=== PATIENT | female | born 1970 | race Caucasian/White ===

== ENCOUNTER 2022-07-08 12:52 | Inpatient (IN) | payer OTHER, SELFPAY ==
--- NOTE | 2022-07-08 | ECG_ITS ---
Test Reason : medical clearence Blood Pressure : / mmHG Vent. Rate : 067 BPM Atrial Rate : 067 BPM P-R Int : 146 ms QRS Dur : 082 ms QT Int : 384 ms P-R-T Axes : 057 015 037 degrees QTc Int : 405 ms Normal sinus rhythm Nonspecific T wave abnormality Abnormal ECG No previous ECGs available Referred By: Trey Sparks Electronically Signed By:Fernando Ann
--- NOTE | ~2022-07-08 | XR_ITS ---
EXAMINATION: XR ABDOMEN KUB CLINICAL INDICATION: Obstruction. COMPARISON: None available. TECHNIQUE: AP view of the abdomen. FINDINGS: Nonobstructive bowel gas pattern. No significant stool content. No acute osseous abnormalities. Small right-sided pelvic phleboliths. XR/XR KUB IMPRESSION: Nonobstructive bowel gas pattern.
[2022-07-08 12:59] VITALS: BP 129/87; BP 137/100; PULSE 63; PULSE 88; RESP 18; TEMP 36.8; O2SAT 98; BMI 21.2
--- NOTE | 2022-07-08 13:12 | ED_ITS ---
HPI - General Adult General Chief complaint: Psychiatric Symptoms Stated complaint: SEC 12 BY [facility]N FOR SI Time Seen by Provider: 07/08/22 13:11 Source: patient and EMS Mode of arrival: EMS Limitations: no limitations History of Present Illness HPI narrative: Patient is a 51 year old assigned female at with no reported medical history presenting to the emergency department today on a section 12 for SI. Patient states that she has a plan to kill herself by cutting her wrists and there are voices telling her to do this to herself. Patient denies any dizziness, lightheadedness, abdominal pain, nausea, vomiting, fever, chills, blurry vision, double vision, loss of vision, chest pain, difficulty breathing, shortness of breath, back pain, night sweats, pain with urination, increased urinary frequency, increased urinary urgency, blood in her urine or stool, syncope or a near syncopal episode, recent trauma or falls, bowel incontinence, bladder incontinence, bowel retention, bladder retention, or any other complaints at this time. Relieving factors: none Exacerbating factors: none Associated symptoms: denies other symptoms Treatments prior to arrival: none Related Data Home Medications Medication Instructions Recorded Confirmed gabapentin 100 mg tablet 100 mg PO BID 07/08/22 07/08/22 levothyroxine 112 mcg tablet 112 mcg PO DAILY 07/08/22 07/08/22 Review of Systems Constitutional: Constitutional: Reports no additional constitutional c omplaints, Denies chills, Denies fever(s) and Denies night sweats Eyes: Eyes: Reports no additional eye complaints, Denies blurry vision, Denies change in vision, Denies diplopia, Denies eye discharge, Denies loss of vision and Denies eye pain ENT: Denies dizziness Cardiovascular: Cardiovascular: Reports no additional cardiovascular complaints, Denies chest pain, Denies lightheadedness, Denies Loss of Consciousness and Denies dyspnea Respiratory: Respiratory: Reports no additional respiratory complaints and Denies dyspnea Gastrointestinal: Gastrointestinal: Reports no additional gastrointestinal complaints, Denies abdominal pain, Denies melena, Denies hematochezia, Denies change in bowel habits and Denies change in stool character Genitourinary: Genitourinary: Denies hematuria, Denies urinary frequency, Denies dysuria, Denies urinary incontinence, Denies urinary hesitancy and Denies urinary urgency Musculoskeletal: Musculoskeletal: Reports no additional musculoskeletal complaints, Denies numbness and Denies tingling Neurologic: Denies dizziness, Denies loss of vision, Denies numbness and Denies tingling Psychiatric: Psychiatric: Reports no additional psychiatric complaints, Denies homicidal ideation and Reports suicidal ideation Endocrine: Endocrine: Reports no additional endocrine complaints Hematologic/Lymphatic: Hematologic/Lymphatic: Reports no additional hematologic/lymphatic complaints Allergic/Immunologic: Allergic/Immunologic: Reports no additional allergic/immunologic complaints PMFSH Past Medical History Attestation statement: The following information was validated with the patient. Source: old records reviewed and nursing notes reviewed Social History Social History Advance Directives: No Advance Directives Information Provided: Yes Physical Exam ED Vital Signs: Vital Signs - 24 hr 07/08/22 12:59 Temperature 98.3 F Pulse Rate 63 Respiratory Rate 18 Blood Pressure 129/87 Pulse Oximetry 98 Oxygen Delivery Method Room Air BMI result Body Mass Index 21.2 Const General: cooperative, no acute distress, alert and awake Nutritional Appearance: well nourished Orientation/consciousness: patient oriented x3 Limitations: no limitations HENMT Head: Yes normal to inspection and Yes atraumatic Ears: hearing grossly normal bilaterally and external ears normal General nose exam: Normal external nose present, no nasal discharge noted and no epistaxis Face and sinus: Yes normal facial exam, No abrasion and No laceration Mouth: Normal oral and palatal mucosa present, no drooling and no muffled voice Eyes General: appearance normal, both eyes and all related structures Periorbital: periorbital findings normal Eyelids: Yes eyelids normal Conjunctivae: conjunctivae normal Pupils: Equal, round and reactive pupils present EOM: EOMs intact bilaterally Neck Neck: Yes normal visual inspection, Yes full ROM and Yes no lymphadenopathy Chest Chest palpation & inspection: normal inspection of the chest Resp Effort & Inspection: normal respiratory effort and able to speak in complete sentences Auscultation: clear to auscultation bilaterally Cardio Rate: regular rate Rhythm: regular rhythm GI Inspection: Yes normal to inspection Palpation (GI): Soft to palpation, not firm, nontender and no guarding Neuro General: patient oriented x3 and moves all extremities Cranial nerves: Yes Equal, round and reactive pupils present Cognition (Neuro): normal cognition Motor exam (neuro): 5/5 motor strength present throughout Sensory Exam: Normal double simultaneous stimulation for sensation Coordination: [id number] test normal Extrem General: Yes normal to inspection, Yes full ROM and Yes capillary refill normal Psych Appearance: grossly normal Mental Status: mental status grossly normal Affect: Blunted affect present Attitude: cooperative Thought content: Suicidality present Insight: Limited insight present (Psych) Judgement: Limited judgement present (Psych) Medical Decision Making Medical Decision Making [facility] Narrative: Patient is a 51 year old assigned female at with no reported medical history presenting to the emergency department today with suicidal ideation. Patient's physical exam showed a blunted individual but was otherwise unrem arkable. Patient's blood work was unremarkable. I explained my physical exam findings as well as all test results to the patient. I answered all questions asked by the patient. Patient is still pending evaluation by CARE team. Differential Diagnosis Differential Diagnoses: The differential diagnosis associated with the presentation includes suicidal ideation Lab Data [facility] Lab Attestation statement: I reviewed the patient's lab results. 07/08/22 16:16 07/08/22 16:16 Labs: Lab Results 07/08/22 07/08/22 07/08/22 Range/Units 13:13 16:16 16:16 WBC 7.6 (4.8-10.8) X10*3/uL RBC 3.66 L (4.20-5.50) X10*6/uL Hgb 12.8 (12.0-16.0) g/dl Hct 36.9 L (37.0-47.0) % MCV 100.8 H (80.0-98.0) fL MCH 35.0 H (27.0-33.0) pg MCHC 34.7 (31.0-35.0) g/dl RDW 12.7 (11.0-16.0) % Plt Count 402 H (160-400) X10*3/uL MPV 8.8 L (9.4-12.3) fL Immature Gran % (Auto) 0.3 (0.0-0.4) % Neut % (Auto) 59.0 (45-73) % Lymph % (Auto) 32.5 (20-40) % [place] % (Auto) 6.6 (2-11) % Eos % (Auto) 0.9 (0-4) % Baso % (Auto) 0.7 (0-2) % Lymph # (Auto) 2.5 (1.2-4.9) X10*3/uL [place] # (Auto) 0.5 (0.1-1.2) X10*3/uL Eos # (Auto) 0.1 (0.0-0.4) X10*3/uL Baso # (Auto) 0.1 (0.0-0.2) X10*3/uL Abs Immat Gran (auto) 0.02 (0.00-0.03) X10*3/uL Absolute Neuts (auto) 4.5 (2.0-8.3) x10*3/uL Absolute Nucleated RBC 0.000 (0.0-0.012) X10*3/uL Nucleated RBC % (auto) 0.0 (0.0-0.2) /100WBC Sodium 140 (135-145) mmol/L Potassium 3.8 (3.3-5.1) mmol/L Chloride 103 (96-108) mmol/L Carbon Dioxide 30 H (22-29) mmol/L Anion Gap 11 L (12-20) BUN 11 (9-16) mg/dL Creatinine 1.13 (0.5-1.4) mg/dL Estim Creat Clear Calc 47.6 Estimated GFR 50 Random Glucose 145 H (60-115) mg/dL Calcium 9.7 (8.4-10.2) mg/dL Total Bilirubin 0.5 (0.0-1.0) mg/dL AST 27 (5-31) U/L ALT 17 (0-31) U/L Alkaline Phosphatase 69 (39-117) U/L Total Protein 7.9 (6.5-8.0) g/dL Albumin 4.8 (3.5-5.0) g/dL COVID-19 (LESLI) Negative (Negative) COVID-19 Clin Com See Note Discharge Plan Discharge Clinical Impression: Suicidal ideation Patient Disposition: Still a Patient Prescriptions: No Action levothyroxine 112 mcg Tablet 112 mcg PO DAILY gabapentin 100 mg Tablet 100 mg PO BID Interventions: [place]-Suicide Risk Severity Scale Last Done: 07/08/22 13:02
--- NOTE | 2022-07-08 13:40 | MHC.CARE ---
Pt is an inpatient bedsearch from the replaced by [facility] ([facility]).
[2022-07-08 13:53] LABS: COVID-19 Test Negative (Negative); IDNOW Serial# 55D5AD1C
[2022-07-08 16:26] LABS: MANUAL DIFF FLAG NO
[2022-07-08 16:30] LABS: Basophils Absolute Auto 0.1 X10*3/uL (0.0-0.2); Basophils Percent Auto 0.7 % (0-2); Eosinophils Absolute Auto 0.1 X10*3/uL (0.0-0.4); Eosinophils Percent Auto 0.9 % (0-4); Hematocrit 36.9 % (37.0-47.0); Hemoglobin 12.8 g/dl (12.0-16.0); Imm Gran Abs Auto 0.02 X10*3/uL (0.00-0.03); Imm Gran Pct Auto 0.3 % (0.0-0.4); Lymphocytes Absolute Auto 2.5 X10*3/uL (1.2-4.9); Lymphocytes Percent Auto 32.5 % (20-40); Mean Corpuscular HGB Conc 34.7 g/dl (31.0-35.0); Mean Corpuscular Volume 100.8 fL (80.0-98.0); Mean Platelet Volume 8.8 fL (9.4-12.3); Monocytes Absolute Auto 0.5 X10*3/uL (0.1-1.2); Monocytes Percent Auto 6.6 % (2-11); Neutrophils Absolute Auto 4.5 x10*3/uL (2.0-8.3); Platelet Count 402 X10*3/uL (160-400); Red Blood Count 3.66 X10*6/uL (4.20-5.50); Red Cell Distribution Width 12.7 % (11.0-16.0); White Blood Count 7.6 X10*3/uL (4.8-10.8)
[2022-07-08 16:46] LABS: Alanine Aminotransferase 17 U/L (0-31); Albumin Level 4.8 g/dL (3.5-5.0); Alkaline Phosphatase 69 U/L (39-117); Anion Gap 11 (12-20); Aspartate Amino Transferase 27 U/L (5-31); Bilirubin Total 0.5 mg/dL (0.0-1.0); Blood Urea Nitrogen 11 mg/dL (9-16); Calcium 9.7 mg/dL (8.4-10.2); Carbon Dioxide 30 mmol/L (22-29); Chloride 103 mmol/L (96-108); Creatinine Clr Calc Pharmacy 47.6; Estimated Glomerular Filt Rate 50; Glucose Random 145 mg/dL (60-115); Potassium 3.8 mmol/L (3.3-5.1); Sodium 140 mmol/L (135-145); Total Protein 7.9 g/dL (6.5-8.0)
[2022-07-08 19:00] LABS: Amphetamine Screen Urine Not Detected (Not Detect); Barbiturates, Urine Not Detected (Not Detect); Benzodiazepines Screen Urine Not Detected (Not Detect); Cannabinoid Screen Urine Not Detected (Not Detect); Cocaine Screen Urine Not Detected (Not Detect); Fentanyl, urine Not Detected (Not Detect); Opiate Screen Urine Not Detected (Not Detect); Phencyclidine Screen Urine Not Detected (Not Detect)
[2022-07-08 23:20] VITALS: BP 116/82; PULSE 71; RESP 18; TEMP 36.6; O2SAT 98
[2022-07-08 23:25] VITALS: BMI 20.9
[2022-07-09] MEDS: traZODone HCL 50 MG TABLET PO ×2 (00:26→22:29)
[2022-07-09] MEDS: hydrOXYzine HCL 25 MG TABLET PO (00:26)
[2022-07-09] MEDS: Acetaminophen 325 MG TABLET 650 MG PO ×3 (00:28→22:29)
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
[2022-07-09] MEDS: Levothyroxine Sodium 112 MCG TABLET PO (06:27)
[2022-07-09] MEDS: Gabapentin 100 MG CAPSULE PO ×2 (09:08→22:29)
[2022-07-09 09:14] VITALS: BP 126/80; PULSE 80; TEMP 36.3; O2SAT 97
[2022-07-09 09:42] LABS: Alanine Aminotransferase 18 U/L (0-31); Albumin Level 4.7 g/dL (3.5-5.0); Alkaline Phosphatase 73 U/L (39-117); Aspartate Amino Transferase 25 U/L (5-31); Bilirubin Total 0.6 mg/dL (0.0-1.0); Blood Urea Nitrogen 10 mg/dL (9-16); Calcium 9.6 mg/dL (8.4-10.2); Cholesterol 275 mg/dL; Creatinine Clr Calc Pharmacy 50.7; Estimated Glomerular Filt Rate 54; Glucose Fasting 88 mg/dL (60-99); HDL Cholesterol 58 mg/dL; LDL Cholesterol Calculated 200 mg/dl; Total Protein 7.8 g/dL (6.5-8.0); Triglycerides 89 mg/dL
[2022-07-09 09:58] LABS: Anion Gap 13 (12-20); Carbon Dioxide 29 mmol/L (22-29); Chloride 105 mmol/L (96-108); Potassium 4.7 mmol/L (3.3-5.1); Sodium 142 mmol/L (135-145)
[2022-07-09 10:08] LABS: Folate 15.7 ng/mL (> or = 4.0); Thyroid Stimulating Hormone 46.37 uIU/mL (0.32-4.0); Vitamin B12 835 pg/mL (200-900)
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
[2022-07-09] MEDS: Venlafaxine HCl ER 37.5 MG CAP.ER.24H PO (11:36)
[2022-07-09] MEDS: LORazepam 0.5 MG TABLET PO ×2 (11:36→22:29)
[2022-07-09] MEDS: Lidocaine 4 % Patch ADH..PATCH 1 PATCH TRANSDERMA (11:40)
[2022-07-09] MEDS: Milk of Magnesia 30 ML ORAL.SUSP PO (12:17)
--- NOTE | 2022-07-09 14:18 | PC.NURSE ---
Earlier in the shift, pt was complaining of constipation. Pt received milk of magensia at 1217. At 1330, pt reported she didn't feel well and began vomiting and was experiencing diarrhea. Pt continued to vomit for 20 minutes, Melissa aware. Melissa placed order for zofran but pt refused and did not want to take any additional medications. Pt required assistance from toilet to her bed because she complained of her legs feeling numb from sitting for so long. RN assisted pt back to her bed. Melissa recommended orthostatic vitals however pt stated I really don't want to move right now and refused to sit or stand. RN assessed vitals while supine, 98/63, HR 82, O2 98% T: 97. Melissa aware.
[2022-07-09 15:46] LABS: Basophils Absolute Auto 0.1 X10*3/uL (0.0-0.2); Basophils Percent Auto 0.8 % (0-2); Eosinophils Absolute Auto 0.1 X10*3/uL (0.0-0.4); Eosinophils Percent Auto 0.7 % (0-4); Hematocrit 38.7 % (37.0-47.0); Imm Gran Abs Auto 0.05 X10*3/uL (0.00-0.03); Imm Gran Pct Auto 0.4 % (0.0-0.4); Lymphocytes Absolute Auto 2.4 X10*3/uL (1.2-4.9); Lymphocytes Percent Auto 17.7 % (20-40); MANUAL DIFF FLAG NO; Mean Corpuscular HGB Conc 33.6 g/dl (31.0-35.0); Mean Corpuscular Hemoglobin 34.7 pg (27.0-33.0); Mean Corpuscular Volume 103.2 fL (80.0-98.0); Monocytes Absolute Auto 0.7 X10*3/uL (0.1-1.2); Monocytes Percent Auto 5.1 % (2-11); Neutrophils Percent Auto 75.3 % (45-73); Platelet Count 393 X10*3/uL (160-400); Red Blood Count 3.75 X10*6/uL (4.20-5.50); White Blood Count 13.3 X10*3/uL (4.8-10.8)
[2022-07-09 16:12] LABS: Alanine Aminotransferase 17 U/L (0-31); Albumin Level 4.8 g/dL (3.5-5.0); Alkaline Phosphatase 74 U/L (39-117); Anion Gap 16 (12-20); Aspartate Amino Transferase 25 U/L (5-31); Bilirubin Total 0.4 mg/dL (0.0-1.0); Blood Urea Nitrogen 13 mg/dL (9-16); Calcium 10.3 mg/dL (8.4-10.2); Carbon Dioxide 30 mmol/L (22-29); Chloride 100 mmol/L (96-108); Creatinine Clr Calc Pharmacy 47.2; Estimated Glomerular Filt Rate 50; Glucose Random 114 mg/dL (60-115); Lipase 18 U/L (8-78); Potassium 4.6 mmol/L (3.3-5.1); Sodium 141 mmol/L (135-145); Total Protein 7.9 g/dL (6.5-8.0)
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
[2022-07-09 22:26] VITALS: BP 131/76; PULSE 74; RESP 18; TEMP 36.1; O2SAT 98
[2022-07-10] MEDS: Levothyroxine Sodium 112 MCG TABLET PO (07:09)
[2022-07-10 09:15] VITALS: BP 113/74; PULSE 98; RESP 20; TEMP 36.7; O2SAT 97
[2022-07-10] MEDS: Lidocaine 4 % Patch ADH..PATCH 1 PATCH TRANSDERMA ×2 (09:32→16:31)
[2022-07-10] MEDS: Acetaminophen 325 MG TABLET 650 MG PO ×3 (09:33→21:34)
[2022-07-10] MEDS: LORazepam 0.5 MG TABLET PO ×2 (09:33→21:34)
[2022-07-10] MEDS: Venlafaxine HCl ER 37.5 MG CAP.ER.24H PO (09:33)
[2022-07-10] MEDS: Gabapentin 100 MG CAPSULE PO ×2 (09:34→21:34)
--- NOTE | 2022-07-10 17:07 | HO.PSYCHPN ---
Subjective Subjective Date of Service: 07/10/22 Reason For Visit: si Subjective Notes: Conditional Voluntary Medical Problems Affecting Mental Status: No Interim History: met with patient. Discussed with Nursing. Overall feeling significantly better than yesterday physically i.e. able to tolerate food today and no nausea or vomiting. Slept well. Reports her mood is definitely better, but still feels depressed and hopeless at times. Did brighten when talking about family. Hopeful that medications will help with mood. Feeling well care for and supported. Medication Compliance: Yes Side effects from medications: No Attending Groups: Yes Review of Systems Acute medical concerns: No Appreciated hospitalist consult and recommendations. Review of Systems Review of Systems Yes all other systems are reviewed and are negative Mental Status Exam Mental Status Exam Narrative: Pleasant. Engaged. Appropriately presented. Organized. Depressed. No SI. No HI. No agitation. No psychosis. Insight and judgment okay Diagnostics Vital Signs (24Hr): Vital Signs - 24 hr 07/09/22 22:26 07/10/22 09:15 Temperature 97.0 F 98.0 F Pulse Rate 74 98 Respiratory Rate 18 20 Blood Pressure 131/76 113/74 Pulse Oximetry 98 97 Oxygen Delivery Method Room Air Room Air BMI result Body Mass Index 20.9 Labs 07/09/22 15:38 07/09/22 15:38 Labs: Laboratory Results - last 48 hr 07/08/22 07/09/22 07/09/22 18:44 08:53 15:38 WBC RBC Hgb Hct MCV MCH MCHC RDW Plt Count MPV Immature Gran % (Auto) Neut % (Auto) Lymph % (Auto) [place] % (Auto) Eos % (Auto) Baso % (Auto) Lymph # (Auto) [place] # (Auto) Eos # (Auto) Baso # (Auto) Abs Immat Gran (auto) Absolute Neuts (auto) Absolute Nucleated RBC Nucleated RBC % (auto) Sodium 142 141 Potassium 4.7 D 4.6 Chloride 105 100 Carbon Dioxide 29 30 H Anion Gap 13 16 BUN 10 13 Creatinine 1.06 1.14 Estim Creat Clear Calc 50.7 47.2 Estimated GFR 54 50 Random Glucose 114 Fasting Glucose 88 Calcium 9.6 10.3 H D Total Bilirubin 0.6 0.4 AST 25 25 ALT 18 17 Alkaline Phosphatase 73 74 Total Protein 7.8 7.9 Albumin 4.7 4.8 Triglycerides 89 Cholesterol 275 LDL Cholesterol, Calc 200 HDL Cholesterol 58 Lipase 18 Vitamin B12 835 Folate 15.7 TSH 46.37 H Urine Opiates Screen Not Detected Urine Fentanyl Screen Not Detected Ur Barbiturates Screen Not Detected Ur Phencyclidine Scrn Not Detected Ur Amphetamines Screen Not Detected U Benzodiazepines Scrn Not Detected Urine Cocaine Screen Not Detected U Marijuana (THC) Screen Not Detected 07/09/22 15:38 WBC 13.3 H RBC 3.75 L Hgb 13.0 Hct 38.7 MCV 103.2 H MCH 34.7 H MCHC 33.6 RDW 13.0 Plt Count 393 MPV 9.0 L Immature Gran % (Auto) 0.4 Neut % (Auto) 75.3 H Lymph % (Auto) 17.7 L [place] % (Auto) 5.1 Eos % (Auto) 0.7 Baso % (Auto) 0.8 Lymph # (Auto) 2.4 [place] # (Auto) 0.7 Eos # (Auto) 0.1 Baso # (Auto) 0.1 Abs Immat Gran (auto) 0.05 H Absolute Neuts (auto) 10.0 H Absolute Nucleated RBC 0.000 Nucleated RBC % (auto) 0.0 Sodium Potassium Chloride Carbon Dioxide Anion Gap BUN Creatinine Estim Creat Clear Calc Estimated GFR Random Glucose Fasting Glucose Calcium Total Bilirubin AST ALT Alkaline Phosphatase Total Protein Albumin Triglycerides Cholesterol LDL Cholesterol, Calc HDL Cholesterol Lipase Vitamin B12 Folate TSH Urine Opiates Screen Urine Fentanyl Screen Ur Barbiturates Screen Ur Phencyclidine Scrn Ur Amphetamines Screen U Benzodiazepines Scrn Urine Cocaine Screen U Marijuana (THC) Screen Imaging Radiology Impressions: ITS Impressions KUB X-Ray 07/09/22 16:50 IMPRESSION: Nonobstructive bowel gas pattern. Medications Medications Current Medications Acetaminophen (Acetaminophen 325 Mg Tablet) 650 mg PO TID [facility] Last Admin: 07/10/22 14:18 Dose: 650 mg Al Hydroxide/Mg Hydroxide (Magnesium Hydrox/Alum Hydrox 30 Ml Oral.Susp) 30 ml PO Q6H PRN PRN Reason: Heartburn/Nausea Gabapentin (Gabapentin 100 Mg Capsule) 100 mg PO BID [facility] Last Admin: 07/10/22 09:34 Dose: 100 mg Hydroxyzine HCl (Hydroxyzine Hcl 25 Mg Tablet) 25 mg PO Q6H PRN PRN Reason: Anxiety Last Admin: 07/09/22 00:26 Dose: 25 mg Levothyroxine Sodium (Levothyroxine Sodium 112 Mcg Tablet) 112 mcg PO DAILY@0630 [facility] Last Admin: 07/10/22 07:09 Dose: 112 mcg Lidocaine (Lidocaine 4 % Patch Adh..Patch) 1 patch TRANSDERMA DAILY [facility]; Protocol Last Admin: 07/10/22 09:32 Dose: 1 patch Loperamide HCl (Loperamide Hcl 2 Mg Capsule) 2 mg PO Q6H PRN PRN Reason: Loose Stool Lorazepam (Lorazepam 0.5 Mg Tablet) 0.5 mg PO BID [facility] Last Admin: 07/10/22 09:33 Dose: 0.5 mg Magnesium Hydroxide (Milk Of Magnesia 30 Ml Oral.Susp) 30 ml PO DAILY PRN PRN Reason: Constipation Last Admin: 07/09/22 12:17 Dose: 30 ml Ondansetron HCl (Ondansetron Odt 4 Mg Tab.Rapdis) 4 mg TRANSLINGU Q6H PRN PRN Reason: Vomiting Trazodone HCl (Trazodone Hcl 50 Mg Tablet) 50 mg PO BEDTIME PRN PRN Reason: Insomnia Last Admin: 07/09/22 22:29 Dose: 50 mg Venlafaxine HCl (Venlafaxine Hcl Er 37.5 Mg Cap.Er.24h) 37.5 mg PO DAILY [facility] Last Admin: 07/10/22 09:33 Dose: 37.5 mg Allergies Allergies Allergy/AdvReac Type Severity Reaction Status Date / Time Unable to Assess Allergy Verified 07/08/22 22:27 Assessment & Plan Assessment & Plan (1) MDD (major depressive disorder), recurrent severe, without psychosis: Status: Acute Code(s): F33.2 - Major depressive disorder, recurrent severe without psychotic features Assessment and Plan: 07/10: continue current treatment plan. Reason for contiued inpatient stay Substantial Risk for: inability to function Time Spent With Patient Time: Total time managing care of this patient today ____ minutes.
[2022-07-10 21:25] VITALS: BP 116/71; PULSE 79; RESP 18; TEMP 35.9; O2SAT 96
[2022-07-10] MEDS: traZODone HCL 50 MG TABLET PO ×2 (21:34→23:04)
[2022-07-11] MEDS: Levothyroxine Sodium 112 MCG TABLET PO (07:00)
[2022-07-11 08:30] VITALS: BP 84/55; PULSE 92; RESP 18; TEMP 37.1; O2SAT 96
[2022-07-11] MEDS: LORazepam 0.5 MG TABLET PO ×2 (09:12→21:37)
[2022-07-11] MEDS: Gabapentin 100 MG CAPSULE PO ×2 (09:12→21:36)
[2022-07-11] MEDS: Venlafaxine HCl ER 37.5 MG CAP.ER.24H PO (09:13)
[2022-07-11] MEDS: Acetaminophen 325 MG TABLET 650 MG PO ×3 (09:13→21:36)
[2022-07-11] MEDS: Lidocaine 4 % Patch ADH..PATCH 1 PATCH TRANSDERMA (09:16)
[2022-07-11 10:07] VITALS: BP 111/71; PULSE 89; RESP 18; O2SAT 97
[2022-07-11] MEDS: hydrOXYzine HCL 25 MG TABLET PO (14:59)
--- NOTE | 2022-07-11 16:59 | HO.PSYCHPN ---
Subjective Subjective Date of Service: 07/11/22 Reason For Visit: si Interim History: Reports today is not as good as yesterday. Attributes this to having visit from her daughter yesterday which was positive. Also acknowledges overall though things are a little bit better. Reports her sleep has been broken but that extra trazodone has been helpful. We did discuss scheduling a higher dose which she felt positive about. Otherwise slightly less hopeless. Less frequent suicidal thoughts. No plans. Feeling supported. Remains positive regarding medications. We did discuss focusing on self versus other people on the unit, such as her roommate and respecting boundaries. Medication Compliance: Yes Side effects from medications: No Attending Groups: Yes Review of Systems Acute medical concerns: No Review of Systems Review of Systems Yes all other systems are reviewed and are negative Mental Status Exam Mental Status Exam Narrative: Pleasant. Engaged. Appropriately presented. Organized. Depressed. No SI. No HI. No agitation. No psychosis. Insight and judgment okay Diagnostics Vital Signs (24Hr): Vital Signs - 24 hr 07/10/22 21:25 07/11/22 08:30 07/11/22 10:07 Temperature 96.7 F L 98.7 F Pulse Rate 79 92 89 Respiratory Rate 18 18 18 Blood Pressure 116/71 84/55 L 111/71 Pulse Oximetry 96 96 97 Oxygen Delivery Method Room Air Room Air Room Air BMI result Body Mass Index 20.9 Labs 07/09/22 15:38 07/09/22 15:38 Imaging Radiology Impressions: ITS Impressions KUB X-Ray 07/09/22 16:50 IMPRESSION: Nonobstructive bowel gas pattern. Medications Medications Current Medications Acetaminophen (Acetaminophen 325 Mg Tablet) 650 mg PO TID [facility] Last Admin: 07/11/22 14:51 Dose: 650 mg Al Hydroxide/Mg Hydroxide (Magnesium Hydrox/Alum Hydrox 30 Ml Oral.Susp) 30 ml PO Q6H PRN PRN Reason: Heartburn/Nausea Gabapentin (Gabapentin 100 Mg Capsule) 100 mg PO BID [facility] Last Admin: 07/11/22 09:12 Dose: 100 mg Hydroxyzine HCl (Hydroxyzine Hcl 25 Mg Tablet) 25 mg PO Q6H PRN PRN Reason: Anxiety Last Admin: 07/11/22 14:59 Dose: 25 mg Levothyroxine Sodium (Levothyroxine Sodium 112 Mcg Tablet) 112 mcg PO DAILY@0630 [facility] Last Admin: 07/11/22 07:00 Dose: 112 mcg Lidocaine (Lidocaine 4 % Patch Adh..Patch) 1 patch TRANSDERMA DAILY [facility]; Protocol Last Admin: 07/11/22 09:16 Dose: 1 patch Loperamide HCl (Loperamide Hcl 2 Mg Capsule) 2 mg PO Q6H PRN PRN Reason: Loose Stool Lorazepam (Lorazepam 0.5 Mg Tablet) 0.5 mg PO BID [facility] Last Admin: 07/11/22 09:12 Dose: 0.5 mg Magnesium Hydroxide (Milk Of Magnesia 30 Ml Oral.Susp) 30 ml PO DAILY PRN PRN Reason: Constipation Last Admin: 07/09/22 12:17 Dose: 30 ml Ondansetron HCl (Ondansetron Odt 4 Mg Tab.Rapdis) 4 mg TRANSLINGU Q6H PRN PRN Reason: Vomiting Trazodone HCl (Trazodone Hcl 50 Mg Tablet) 50 mg PO BEDTIME PRN PRN Reason: Insomnia Last Admin: 07/10/22 23:04 Dose: 50 mg Venlafaxine HCl (Venlafaxine Hcl Er 37.5 Mg Cap.Er.24h) 37.5 mg PO DAILY [facility] Last Admin: 07/11/22 09:13 Dose: 37.5 mg Allergies Allergies Allergy/AdvReac Type Severity Reaction Status Date / Time Unable to Assess Allergy Verified 07/08/22 22:27 Assessment & Plan Assessment & Plan (1) MDD (major depressive disorder), recurrent severe, without psychosis: Status: Acute Code(s): F33.2 - Major depressive disorder, recurrent severe without psychotic features Assessment and Plan: 07/10: continue current treatment plan 07/11: increased trazodone to 100mg bedtime Reason for contiued inpatient stay Substantial Risk for: harm to self Time Spent With Patient Time: Total time managing care of this patient today ____ minutes.
[2022-07-11 18:45] VITALS: BP 127/72; PULSE 74; RESP 18; TEMP 36.8; O2SAT 98
[2022-07-11] MEDS: traZODone HCL 100 MG TABLET PO (21:39)
[2022-07-12] MEDS: Levothyroxine Sodium 112 MCG TABLET PO (05:41)
[2022-07-12 08:00] VITALS: BP 112/79; PULSE 85; TEMP 36.1; O2SAT 96
[2022-07-12] MEDS: Acetaminophen 325 MG TABLET 650 MG PO ×3 (08:44→22:38)
[2022-07-12] MEDS: Venlafaxine HCl ER 37.5 MG CAP.ER.24H PO (08:44)
[2022-07-12] MEDS: LORazepam 0.5 MG TABLET PO ×2 (08:44→22:38)
[2022-07-12] MEDS: Gabapentin 100 MG CAPSULE PO ×2 (08:44→22:39)
[2022-07-12] MEDS: Lidocaine 4 % Patch ADH..PATCH 1 PATCH TRANSDERMA (08:45)
--- NOTE | 2022-07-12 16:57 | HO.PSYCHPN ---
Subjective Subjective Date of Service: 07/12/22 Reason For Visit: si Interim History: Met with patient; discussed with team; reviewed we can progress notes pt reports overall she's feeling better; depression is much less and SI fully resolved. Pt says anxiety is less. Pharmacy Messenger reviewed ups/downs over the weekend and she agrees to increase Venlafaxine. Pt reports sleeping better. Mental Status Exam Mental Status Exam Narrative: Pleasant. Engaged. Appropriately presented. Organized. Depressed. No SI. No HI. No agitation. No psychosis. Insight and judgment okay Diagnostics Vital Signs (24Hr): Vital Signs - 24 hr 07/11/22 18:45 07/12/22 08:00 Temperature 98.2 F 96.9 F Pulse Rate 74 85 Respiratory Rate 18 Blood Pressure 127/72 112/79 Pulse Oximetry 98 96 Oxygen Delivery Method Room Air Room Air BMI result Body Mass Index 20.9 Labs 07/09/22 15:38 07/09/22 15:38 Imaging Radiology Impressions: ITS Impressions KUB X-Ray 07/09/22 16:50 IMPRESSION: Nonobstructive bowel gas pattern. Medications Medications Current Medications Acetaminophen (Acetaminophen 325 Mg Tablet) 650 mg PO TID [facility] Last Admin: 07/12/22 14:41 Dose: 650 mg Al Hydroxide/Mg Hydroxide (Magnesium Hydrox/Alum Hydrox 30 Ml Oral.Susp) 30 ml PO Q6H PRN PRN Reason: Heartburn/Nausea Gabapentin (Gabapentin 100 Mg Capsule) 100 mg PO BID [facility] Last Admin: 07/12/22 08:44 Dose: 100 mg Hydroxyzine HCl (Hydroxyzine Hcl 25 Mg Tablet) 25 mg PO Q6H PRN PRN Reason: Anxiety Last Admin: 07/11/22 14:59 Dose: 25 mg Levothyroxine Sodium (Levothyroxine Sodium 112 Mcg Tablet) 112 mcg PO DAILY@0630 [facility] Last Admin: 07/12/22 05:41 Dose: 112 mcg Lidocaine (Lidocaine 4 % Patch Adh..Patch) 1 patch TRANSDERMA DAILY [facility]; Protocol Last Admin: 07/12/22 08:45 Dose: 1 patch Loperamide HCl (Loperamide Hcl 2 Mg Capsule) 2 mg PO Q6H PRN PRN Reason: Loose Stool Lorazepam (Lorazepam 0.5 Mg Tablet) 0.5 mg PO BID [facility] Last Admin: 07/12/22 08:44 Dose: 0.5 mg Magnesium Hydroxide (Milk Of Magnesia 30 Ml Oral.Susp) 30 ml PO DAILY PRN PRN Reason: Constipation Last Admin: 07/09/22 12:17 Dose: 30 ml Ondansetron HCl (Ondansetron Odt 4 Mg Tab.Rapdis) 4 mg TRANSLINGU Q6H PRN PRN Reason: Vomiting Trazodone HCl (Trazodone Hcl 100 Mg Tablet) 100 mg PO BEDTIME PRN PRN Reason: Insomnia Last Admin: 07/11/22 21:39 Dose: 100 mg Venlafaxine HCl (Venlafaxine Hcl Er 37.5 Mg Cap.Er.24h) 37.5 mg PO DAILY [facility] Last Admin: 07/12/22 08:44 Dose: 37.5 mg Allergies Allergies Allergy/AdvReac Type Severity Reaction Status Date / Time Unable to Assess Allergy Verified 07/08/22 22:27 Assessment & Plan Assessment & Plan (1) MDD (major depressive disorder), recurrent severe, without psychosis: Status: Acute Code(s): F33.2 - Major depressive disorder, recurrent severe without psychotic features Assessment and Plan: 07/10: continue current treatment plan 07/11: increased trazodone to 100mg bedtime 07/12 increased Venlafaxine ER to 75mg Patient educated on: diagnosis and medication risk/benefits Informed Consent: understands Reason for contiued inpatient stay Substantial Risk for: rapid decompensation Time Spent With Patient Time: Total time managing care of this patient today ____ minutes.
[2022-07-12 20:15] VITALS: BP 109/70; PULSE 74; RESP 18; TEMP 36.9; O2SAT 98
[2022-07-12] MEDS: traZODone HCL 100 MG TABLET PO (22:39)
[2022-07-13] MEDS: Levothyroxine Sodium 112 MCG TABLET PO (06:36)
[2022-07-13] MEDS: Acetaminophen 325 MG TABLET 650 MG PO ×3 (08:53→20:38)
[2022-07-13] MEDS: Gabapentin 100 MG CAPSULE PO ×2 (08:53→20:39)
[2022-07-13] MEDS: LORazepam 0.5 MG TABLET PO ×2 (08:53→20:39)
[2022-07-13] MEDS: Venlafaxine HCl ER 37.5 MG CAP.ER.24H PO ×2 (08:53→09:52)
[2022-07-13 09:12] VITALS: BP 106/67; PULSE 81; RESP 16; TEMP 36.4; O2SAT 97
[2022-07-13] MEDS: Lidocaine 4 % Patch ADH..PATCH 1 PATCH TRANSDERMA (09:53)
--- NOTE | 2022-07-13 11:27 | HO.PSYCHPN ---
Subjective Subjective Date of Service: 07/13/22 Reason For Visit: si Subjective Notes: Conditional Voluntary Interim History: Pt reports feeling less depressed. She denies SI/HI. She does report some anxiety and residual depression. She reports sleeping better. Per nursing, mostly in room, encouraged to attend groups. no physical concerns. Medication Compliance: Yes Side effects from medications: No Attending Groups: Intermittent Review of Systems Review of Systems Postprandial nausea, vomiting, diarrhea times 30 minutes Denies hematemesis or hematochezia Denies abdominal pain No chest pain/pressure, palpitations Denies shortness of breath Yes all other systems are reviewed and are negative Constitutional: Reports no additional constitutional complaints, Denies chills, Reports difficulty sleeping, Reports fatigue, Denies fever(s), Reports lethargy, Denies night sweats, Reports poor appetite and Reports weight loss Eyes: Reports no additional eye complaints, Denies blurry vision, Denies change in vision, Denies diplopia, Denies eye discharge, Denies loss of vision and Denies eye pain Reports system reviewed and no additional complaints, except as documented, Denies dizziness and Reports neck pain Cardiovascular: Reports no additional cardiovascular complaints, Denies chest pain, Denies chest pain with activity, Denies lightheadedness, Denies Loss of Consciousness and Denies dyspnea Respiratory: Reports no additional respiratory complaints, Denies chest congestion, Denies cough and Denies dyspnea Gastrointestinal: Reports no additional gastrointestinal complaints, Denies abdominal pain, Denies melena, Denies hematochezia, Denies change in bowel habits, Denies change in stool character, Denies heartburn and Denies nausea Musculoskeletal: Reports no additional musculoskeletal complaints, Reports back pain, Reports arthralgias, Reports joint swelling, Reports neck pain, Denies numbness and Denies tingling Denies dizziness, Denies loss of vision, Denies numbness and Denies tingling Psychiatric: Reports no additional psychiatric complaints, Denies homicidal ideation and Reports suicidal ideation Endocrine: Reports no additional endocrine complaints and Reports fatigue Hematologic/Lymphatic: Reports no additional hematologic/lymphatic complaints Allergic/Immunologic: Reports no additional allergic/immunologic complaints Mental Status Exam Mental Status Exam Narrative: Appearance: wearing hospital gown, good hygiene, in NAD Behavior: cooperative Psychomotor: no agitation or retardation noted Speech: clear, soft spoken, regular rate, spontaneous TP: linear TC: no signs of psychosis, fearful, depressed, hopeless. Mood: better Affect: brighter SI: none HI: none VH/AH: none Delusions: none Insight/judgment: fair x 2. Memory/cog: alert, oriented x 3. grossly intact to conversational testing but not formally tested. Diagnostics Vital Signs (24Hr): Vital Signs - 24 hr 07/13/22 09:12 07/13/22 20:18 07/14/22 08:29 Temperature 97.6 F 98.3 F 98.8 F Pulse Rate 81 84 79 Respiratory Rate 16 18 16 Blood Pressure 106/67 157/79 H 104/64 Pulse Oximetry 97 98 96 Oxygen Delivery Method Room Air Room Air Room Air BMI result Body Mass Index 20.9 Labs 07/09/22 15:38 07/09/22 15:38 Imaging Radiology Impressions: ITS Impressions KUB X-Ray 07/09/22 16:50 IMPRESSION: Nonobstructive bowel gas pattern. Medications Medications Current Medications Acetaminophen (Acetaminophen 325 Mg Tablet) 650 mg PO TID [facility] Last Admin: 07/14/22 08:41 Dose: 650 mg Al Hydroxide/Mg Hydroxide (Magnesium Hydrox/Alum Hydrox 30 Ml Oral.Susp) 30 ml PO Q6H PRN PRN Reason: Heartburn/Nausea Gabapentin (Gabapentin 100 Mg Capsule) 100 mg PO BID [facility] Last Admin: 07/14/22 08:41 Dose: 100 mg Hydroxyzine HCl (Hydroxyzine Hcl 25 Mg Tablet) 25 mg PO Q6H PRN PRN Reason: Anxiety Last Admin: 07/11/22 14:59 Dose: 25 mg Levothyroxine Sodium (Levothyroxine Sodium 112 Mcg Tablet) 112 mcg PO DAILY@0630 [facility] Last Admin: 07/14/22 06:26 Dose: 112 mcg Lidocaine (Lidocaine 4 % Patch Adh..Patch) 1 patch TRANSDERMA DAILY [facility]; Protocol Last Admin: 07/13/22 09:53 Dose: 1 patch Loperamide HCl (Loperamide Hcl 2 Mg Capsule) 2 mg PO Q6H PRN PRN Reason: Loose Stool Lorazepam (Lorazepam 0.5 Mg Tablet) 0.5 mg PO BID [facility] Last Admin: 07/14/22 08:42 Dose: 0.5 mg Magnesium Hydroxide (Milk Of Magnesia 30 Ml Oral.Susp) 30 ml PO DAILY PRN PRN Reason: Constipation Last Admin: 07/09/22 12:17 Dose: 30 ml Ondansetron HCl (Ondansetron Odt 4 Mg Tab.Rapdis) 4 mg TRANSLINGU Q6H PRN PRN Reason: Vomiting Trazodone HCl (Trazodone Hcl 100 Mg Tablet) 100 mg PO BEDTIME PRN PRN Reason: Insomnia Last Admin: 07/12/22 22:39 Dose: 100 mg Venlafaxine HCl (Venlafaxine Hcl Er 75 Mg Cap.Er.24h) 75 mg PO DAILY RYLIE Last Admin: 07/14/22 08:41 Dose: 75 mg Allergies Allergies Allergy/AdvReac Type Severity Reaction Status Date / Time Unable to Assess Allergy Verified 07/08/22 22:27 Assessment & Plan Assessment & Plan (1) MDD (major depressive disorder), recurrent severe, without psychosis: Status: Acute Code(s): F33.2 - Major depressive disorder, recurrent severe without psychotic features Assessment and Plan: 07/10: continue current treatment plan 07/11: increased trazodone to 100mg bedtime 07/12 increased Venlafaxine ER to 75mg 07/13 continue current medications. Reason for contiued inpatient stay Substantial Risk for: harm to self Time Spent With Patient Time: Total time managing care of this patient today ____ minutes.
[2022-07-13 20:18] VITALS: BP 157/79; PULSE 84; RESP 18; TEMP 36.8; O2SAT 98
[2022-07-14] MEDS: Levothyroxine Sodium 112 MCG TABLET PO (06:26)
[2022-07-14 08:29] VITALS: BP 104/64; PULSE 79; RESP 16; TEMP 37.1; O2SAT 96
[2022-07-14] MEDS: Gabapentin 100 MG CAPSULE PO ×2 (08:41→21:34)
[2022-07-14] MEDS: Venlafaxine HCl ER 75 MG CAP.ER.24H PO (08:41)
[2022-07-14] MEDS: Acetaminophen 325 MG TABLET 650 MG PO ×3 (08:41→21:34)
[2022-07-14] MEDS: LORazepam 0.5 MG TABLET PO ×2 (08:42→21:34)
[2022-07-14] MEDS: Lidocaine 4 % Patch ADH..PATCH 1 PATCH TRANSDERMA (11:12)
[2022-07-14 20:20] VITALS: BP 122/71; PULSE 75; RESP 18; TEMP 36.6; O2SAT 98
--- NOTE | 2022-07-14 21:20 | PC.NURSE ---
Elizabeth is noted to be watching movies with her peers she stated that Captain Gillespie is my boyfriend. I love him he is so handsome she c/o constipation and stated she had not gone to the bathroom since admission which is not the same information she gave on 07/13. she does c/o constipation but refused Milk of Magnesia or prune juice stating that she doesn't want to take it before going to bed. she is noted to have a [id number] affect, is not tearful, and is more easily engaged compared to her assessment on 07/13. she continues to complain of moderate depression and anxiety. monitor for safety, encourage groups
[2022-07-14] MEDS: traZODone HCL 100 MG TABLET PO (22:05)
[2022-07-15 07:00] VITALS: BMI 21.4
[2022-07-15] MEDS: Lidocaine 4 % Patch ADH..PATCH 1 PATCH TRANSDERMA (09:01)
[2022-07-15] MEDS: Venlafaxine HCl ER 75 MG CAP.ER.24H PO (09:02)
[2022-07-15] MEDS: Levothyroxine Sodium 112 MCG TABLET PO (09:02)
[2022-07-15] MEDS: LORazepam 0.5 MG TABLET PO ×2 (09:02→23:25)
[2022-07-15] MEDS: Acetaminophen 325 MG TABLET 650 MG PO ×3 (09:02→23:29)
[2022-07-15] MEDS: Gabapentin 100 MG CAPSULE PO ×2 (09:03→23:26)
[2022-07-15 09:09] VITALS: BP 96/57; PULSE 92; RESP 16; TEMP 36.4; O2SAT 96
--- NOTE | 2022-07-15 09:26 | HO.PSYCHPN ---
Subjective Subjective Date of Service: 07/14/22 Reason For Visit: si Subjective Notes: Conditional Voluntary Interim History: Pt reports feeling less anxious, less depressed. She denies SI/HI. She reports last night she was feeling somewhat anxious and this affected her sleep. She was visible on the unit, social with select peers, No behavioral concerns. Medication Compliance: Yes Review of Systems Review of Systems Postprandial nausea, vomiting, diarrhea times 30 minutes Denies hematemesis or hematochezia Denies abdominal pain No chest pain/pressure, palpitations Denies shortness of breath Yes all other systems are reviewed and are negative Constitutional: Reports no additional constitutional complaints, Denies chills, Reports difficulty sleeping, Reports fatigue, Denies fever(s), Reports lethargy, Denies night sweats, Reports poor appetite and Reports weight loss Eyes: Reports no additional eye complaints, Denies blurry vision, Denies change in vision, Denies diplopia, Denies eye discharge, Denies loss of vision and Denies eye pain Reports system reviewed and no additional complaints, except as documented, Denies dizziness and Reports neck pain Cardiovascular: Reports no additional cardiovascular complaints, Denies chest pain, Denies chest pain with activity, Denies lightheadedness, Denies Loss of Consciousness and Denies dyspnea Respiratory: Reports no additional respiratory complaints, Denies chest congestion, Denies cough and Denies dyspnea Gastrointestinal: Reports no additional gastrointestinal complaints, Denies abdominal pain, Denies melena, Denies hematochezia, Denies change in bowel habits, Denies change in stool character, Denies heartburn and Denies nausea Musculoskeletal: Reports no additional musculoskeletal complaints, Reports back pain, Reports arthralgias, Reports joint swelling, Reports neck pain, Denies numbness and Denies tingling Denies dizziness, Denies loss of vision, Denies numbness and Denies tingling Psychiatric: Reports no additional psychiatric complaints, Denies homicidal ideation and Reports suicidal ideation Endocrine: Reports no additional endocrine complaints and Reports fatigue Hematologic/Lymphatic: Reports no additional hematologic/lymphatic complaints Allergic/Immunologic: Reports no additional allergic/immunologic complaints Mental Status Exam Mental Status Exam Narrative: Appearance: wearing hospital gown, good hygiene, in NAD Behavior: cooperative Psychomotor: no agitation or retardation noted Speech: clear, soft spoken, regular rate, spontaneous TP: linear TC: no signs of psychosis, fearful, depressed, hopeless. Mood: better Affect: brighter SI: none HI: none VH/AH: none Delusions: none Insight/judgment: fair x 2. Memory/cog: alert, oriented x 3. grossly intact to conversational testing but not formally tested. Diagnostics Vital Signs (24Hr): Vital Signs - 24 hr 07/14/22 20:20 07/15/22 09:09 Temperature 97.9 F 97.6 F Pulse Rate 75 92 Respiratory Rate 18 16 Blood Pressure 122/71 96/57 L Pulse Oximetry 98 96 Oxygen Delivery Method Room Air Room Air BMI result Body Mass Index 20.9 Labs 07/09/22 15:38 07/09/22 15:38 Imaging Radiology Impressions: ITS Impressions KUB X-Ray 07/09/22 16:50 IMPRESSION: Nonobstructive bowel gas pattern. Medications Medications Current Medications Acetaminophen (Acetaminophen 325 Mg Tablet) 650 mg PO TID [facility] Last Admin: 07/15/22 09:02 Dose: 650 mg Al Hydroxide/Mg Hydroxide (Magnesium Hydrox/Alum Hydrox 30 Ml Oral.Susp) 30 ml PO Q6H PRN PRN Reason: Heartburn/Nausea Gabapentin (Gabapentin 100 Mg Capsule) 100 mg PO BID [facility] Last Admin: 07/15/22 09:03 Dose: 100 mg Hydroxyzine HCl (Hydroxyzine Hcl 25 Mg Tablet) 25 mg PO Q6H PRN PRN Reason: Anxiety Last Admin: 07/11/22 14:59 Dose: 25 mg Levothyroxine Sodium (Levothyroxine Sodium 112 Mcg Tablet) 112 mcg PO DAILY@0630 [facility] Last Admin: 07/15/22 09:02 Dose: 112 mcg Lidocaine (Lidocaine 4 % Patch Adh..Patch) 1 patch TRANSDERMA DAILY [facility]; Protocol Last Admin: 07/15/22 09:01 Dose: 1 patch Loperamide HCl (Loperamide Hcl 2 Mg Capsule) 2 mg PO Q6H PRN PRN Reason: Loose Stool Lorazepam (Lorazepam 0.5 Mg Tablet) 0.5 mg PO BID [facility] Last Admin: 07/15/22 09:02 Dose: 0.5 mg Magnesium Hydroxide (Milk Of Magnesia 30 Ml Oral.Susp) 30 ml PO DAILY PRN PRN Reason: Constipation Last Admin: 07/09/22 12:17 Dose: 30 ml Ondansetron HCl (Ondansetron Odt 4 Mg Tab.Rapdis) 4 mg TRANSLINGU Q6H PRN PRN Reason: Vomiting Trazodone HCl (Trazodone Hcl 100 Mg Tablet) 100 mg PO BEDTIME PRN PRN Reason: Insomnia Last Admin: 07/14/22 22:05 Dose: 100 mg Venlafaxine HCl (Venlafaxine Hcl Er 75 Mg Cap.Er.24h) 75 mg PO DAILY [facility]YLIE Last Admin: 07/15/22 09:02 Dose: 75 mg Allergies Allergies Allergy/AdvReac Type Severity Reaction Status Date / Time Unable to Assess Allergy Verified 07/08/22 22:27 Assessment & Plan Assessment & Plan (1) MDD (major depressive disorder), recurrent severe, without psychosis: Status: Acute Code(s): F33.2 - Major depressive disorder, recurrent severe without psychotic features Assessment and Plan: 07/10: continue current treatment plan 07/11: increased trazodone to 100mg bedtime 07/12 increased Venlafaxine ER to 75mg 07/13 continue current medications. 07/14 continue tx. Reason for contiued inpatient stay Substantial Risk for: stable for discharge Time Spent With Patient Time: Total time managing care of this patient today ____ minutes.
[2022-07-15] MEDS: hydrOXYzine HCL 25 MG TABLET PO ×2 (11:41→23:25)
--- NOTE | 2022-07-15 20:50 | HO.PSYCHPN ---
Subjective Subjective Date of Service: 07/15/22 Reason For Visit: si Subjective Notes: Conditional Voluntary Interim History: Pt continues to report feeling less anxious and less depressed. She denies SI/HI. She reports tolerating medications well. She denies any side effects. She was visible on the unit, social with select peers. No behavioral concerns. Medication Compliance: Yes Review of Systems Review of Systems Postprandial nausea, vomiting, diarrhea times 30 minutes Denies hematemesis or hematochezia Denies abdominal pain No chest pain/pressure, palpitations Denies shortness of breath Yes all other systems are reviewed and are negative Constitutional: Reports no additional constitutional complaints, Denies chills, Reports difficulty sleeping, Reports fatigue, Denies fever(s), Reports lethargy, Denies night sweats, Reports poor appetite and Reports weight loss Eyes: Reports no additional eye complaints, Denies blurry vision, Denies change in vision, Denies diplopia, Denies eye discharge, Denies loss of vision and Denies eye pain Reports system reviewed and no additional complaints, except as documented, Denies dizziness and Reports neck pain Cardiovascular: Reports no additional cardiovascular complaints, Denies chest pain, Denies chest pain with activity, Denies lightheadedness, Denies Loss of Consciousness and Denies dyspnea Respiratory: Reports no additional respiratory complaints, Denies chest congestion, Denies cough and Denies dyspnea Gastrointestinal: Reports no additional gastrointestinal complaints, Denies abdominal pain, Denies melena, Denies hematochezia, Denies change in bowel habits, Denies change in stool character, Denies heartburn and Denies nausea Musculoskeletal: Reports no additional musculoskeletal complaints, Reports back pain, Reports arthralgias, Reports joint swelling, Reports neck pain, Denies numbness and Denies tingling Denies dizziness, Denies loss of vision, Denies numbness and Denies tingling Psychiatric: Reports no additional psychiatric complaints, Denies homicidal ideation and Reports suicidal ideation Endocrine: Reports no additional endocrine complaints and Reports fatigue Hematologic/Lymphatic: Reports no additional hematologic/lymphatic complaints Allergic/Immunologic: Reports no additional allergic/immunologic complaints Mental Status Exam Mental Status Exam Narrative: Appearance: wearing hospital gown, good hygiene, in NAD Behavior: cooperative Psychomotor: no agitation or retardation noted Speech: clear, soft spoken, regular rate, spontaneous TP: linear TC: no signs of psychosis, fearful, depressed, hopeless. Mood: better Affect: brighter SI: none HI: none VH/AH: none Delusions: none Insight/judgment: fair x 2. Memory/cog: alert, oriented x 3. grossly intact to conversational testing but not formally tested. Diagnostics Vital Signs (24Hr): Vital Signs - 24 hr 07/15/22 09:09 Temperature 97.6 F Pulse Rate 92 Respiratory Rate 16 Blood Pressure 96/57 L Pulse Oximetry 96 Oxygen Delivery Method Room Air BMI result Body Mass Index 21.4 Labs 07/09/22 15:38 07/09/22 15:38 Imaging Radiology Impressions: ITS Impressions KUB X-Ray 07/09/22 16:50 IMPRESSION: Nonobstructive bowel gas pattern. Medications Medications Current Medications Acetaminophen (Acetaminophen 325 Mg Tablet) 650 mg PO TID [facility] Last Admin: 07/15/22 14:49 Dose: 650 mg Al Hydroxide/Mg Hydroxide (Magnesium Hydrox/Alum Hydrox 30 Ml Oral.Susp) 30 ml PO Q6H PRN PRN Reason: Heartburn/Nausea Gabapentin (Gabapentin 100 Mg Capsule) 100 mg PO BID [facility] Last Admin: 07/15/22 09:03 Dose: 100 mg Hydroxyzine HCl (Hydroxyzine Hcl 25 Mg Tablet) 25 mg PO Q6H PRN PRN Reason: Anxiety Last Admin: 07/15/22 11:41 Dose: 25 mg Levothyroxine Sodium (Levothyroxine Sodium 112 Mcg Tablet) 112 mcg PO DAILY@0630 [facility] Last Admin: 07/15/22 09:02 Dose: 112 mcg Lidocaine (Lidocaine 4 % Patch Adh..Patch) 1 patch TRANSDERMA DAILY [facility]; Protocol Last Admin: 07/15/22 09:01 Dose: 1 patch Loperamide HCl (Loperamide Hcl 2 Mg Capsule) 2 mg PO Q6H PRN PRN Reason: Loose Stool Lorazepam (Lorazepam 0.5 Mg Tablet) 0.5 mg PO BID [facility] Last Admin: 07/15/22 09:02 Dose: 0.5 mg Magnesium Hydroxide (Milk Of Magnesia 30 Ml Oral.Susp) 30 ml PO DAILY PRN PRN Reason: Constipation Last Admin: 07/09/22 12:17 Dose: 30 ml Ondansetron HCl (Ondansetron Odt 4 Mg Tab.Rapdis) 4 mg TRANSLINGU Q6H PRN PRN Reason: Vomiting Trazodone HCl (Trazodone Hcl 100 Mg Tablet) 100 mg PO BEDTIME PRN PRN Reason: Insomnia Last Admin: 07/14/22 22:05 Dose: 100 mg Venlafaxine HCl (Venlafaxine Hcl Er 75 Mg Cap.Er.24h) 75 mg PO DAILY [facility]YLIE Last Admin: 07/15/22 09:02 Dose: 75 mg Allergies Allergies Allergy/AdvReac Type Severity Reaction Status Date / Time Unable to Assess Allergy Verified 07/08/22 22:27 Assessment & Plan Assessment & Plan (1) MDD (major depressive disorder), recurrent severe, without psychosis: Status: Acute Code(s): F33.2 - Major depressive disorder, recurrent severe without psychotic features Assessment and Plan: 07/10: continue current treatment plan 07/11: increased trazodone to 100mg bedtime 07/12 increased Venlafaxine ER to 75mg 07/13 continue current medications. 07/14 continue tx. 07/15 continue tx. Reason for contiued inpatient stay Substantial Risk for: stable for discharge Time Spent With Patient Time: Total time managing care of this patient today ____ minutes.
[2022-07-15 23:15] VITALS: BP 105/72; PULSE 78; RESP 18; TEMP 36.5; O2SAT 99
[2022-07-15] MEDS: traZODone HCL 100 MG TABLET PO (23:25)
[2022-07-16] MEDS: Levothyroxine Sodium 112 MCG TABLET PO (06:29)
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
[2022-07-16] MEDS: Gabapentin 100 MG CAPSULE PO (08:33)
[2022-07-16] MEDS: Acetaminophen 325 MG TABLET 650 MG PO (08:33)
[2022-07-16] MEDS: Lidocaine 4 % Patch ADH..PATCH 1 PATCH TRANSDERMA (08:33)
[2022-07-16] MEDS: Venlafaxine HCl ER 75 MG CAP.ER.24H PO (08:33)
[2022-07-16] MEDS: LORazepam 0.5 MG TABLET PO (08:33)
[2022-07-16 08:43] VITALS: BP 94/52; PULSE 80; RESP 18; TEMP 36.6; O2SAT 95
== END 2022-07-16 11:10 | disposition home or self-care (01) | DRG 751 ==
LOC: HO.ED 17:25 → HO.PADLT16 22:59
PROVIDERS: Admitting Provider Social Worker; Emergency Provider Emergency Medicine; Visit Provider Social Worker
DX: F33.2 Major depressive disorder, recurrent severe without psychotic features (principal); R45.851 Suicidal ideations; E03.9 Hypothyroidism, unspecified; F41.9 Anxiety disorder, unspecified; Z20.822 Contact with and (suspected) exposure to COVID-19; Z79.890 Hormone replacement therapy; Z79.899 Other long term (current) drug therapy
CPT/HCPCS: 36415; 74018; 80053; 80061; 80307; 82607; 82746; 83690; 84443; 85025; 87635; 93005; 99285